=== PATIENT | male | born 1960 | race Caucasian/White ===

== ENCOUNTER 2017-12-17 23:15 | Emergency (ER) | payer OTHER ==
[~2017-12-17] VITALS: Ht 180.3 cm; Wt 95.7 kg
--- NOTE | ~2017-12-17 | EKG ---
[place] [address] [facility] [employer] [place] [address] ELECTROCARDIOGRAM REPORT Name: LARY OATESCARMENCITA Rice Room #: DEP [facility] [id number] Admission: 12/17/17 Attend Phys: Discharge: 12/18/17 Date of : 60 Report #: [id number] THIS REPORT FOR: //name// [facility] ED Test Date: 2017-12-17 Test Time: 23:34:00 Pat Name: DC OATES Department: Room: Gender: M Highway Design Engineer: ESTELLE : 1960 Requested By: Deonna Rios Order Number: [id number] MD: Cyril Worrell Measurements Intervals [place] Rate: 49 P: 83 MO: 141 QRS: 14 QRSD: 97 T: 6 QT: 423 QTc: 382 Interpretive Statements Sinus bradycardia Borderline low voltage, extremity leads Compared to ECG 05/30/2010 15:36:00 Heart rate has slowed Electronically Signed On 12-18-2017 8:03:17 CDT by Cyril Worrell [email or web address] <ELECTRONICALLY SIGNED> By: Cyril Worrell MD, [facility] 12/18/17 0803 D: 05/2333 33 Cyril Worrell MD, FACC /EPI
[~2017-12-17 23:15] MED LIST: COUMADIN 5 MG TA5 M1 PO; LOVENOX SC; NOHOMEMEDICATIONS; VICODIN ES TAB1 EACH PO; ZANTAC 150MG T150 M1 PO
[2017-12-18 00:26] LABS: ABSOLUTE NEUTROPHILS 2.9 thou/uL (1.4-8.2); BASOPHILS 0.8 % (0.0-2.0); EOSINOPHILS 4.9 % (0.0-3.0); HEMATOCRIT 42.5 % (42.0-52.0); HEMOGLOBIN 14.5 gm/dL (14.0-18.0); LYMPHOCYTES 38.3 % (24.0-44.0); MCH 29.2 pg (26.0-34.0); MCHC 34.2 g/dL (28.0-37.0); MCV 85.3 fL (80.0-100.0); MONOCYTES 8.8 % (1.0-8.0); PLATELET COUNT 224 thou/uL (150-400); POLYS 47.2 % (36.0-66.0); RBC 4.98 mil/uL (4.50-6.00); RDW 12.7 % (10.5-14.5); WBC 6.2 thou/uL (4.0-11.0)
[2017-12-18 00:36] LABS: ANION GAP 7 mmol/L (7-16); BUN 13 mg/dL (7-18); CALCIUM 8.9 mg/dL (8.5-10.1); CHLORIDE 104 mmol/L (98-107); CO2 29 mmol/L (21-32); CREATININE 1.3 mg/dL (0.7-1.3); GLUCOSE 126 mg/dL (74-106); POTASSIUM 3.8 mmol/L (3.5-5.1); SODIUM 140 mmol/L (136-145)
[2017-12-18 00:45] LABS: ALBUMIN 3.3 g/dL (3.4-5.0); DIRECT BILIRUBIN 0.1 mg/dL (<0.1-0.3); LIPASE 157 U/L (73-393); SGOT 19 U/L (15-37); SGPT 21 U/L (30-65); TOTAL BILIRUBIN 0.5 mg/dL (<0.1-1.0); TOTAL PROTEIN 6.7 g/dL (6.4-8.2); TROPONIN-I < 0.04 ng/mL (<0.06)
[2017-12-18 02:10] VITALS: BP 100/73
== END 2017-12-18 02:10 | disposition home or self-care (01) ==
LOC: ER 23:15
PROVIDERS: Emergency Medicine
DX: K59.00 Constipation, unspecified (principal)